=== PATIENT | female | born 1980 | race Caucasian/White ===

== ENCOUNTER 2016-12-08 13:29 | Emergency (ER) | payer OTHER ==
[~2016-12-08] VITALS: Ht 185.4 cm; Wt 88.8 kg
[2016-12-08] MEDS: RESP: ALBUTEROL 2.5 MG/IPRATROPIUM 0.5 MG NEB (SCH) INH ×3 (13:14→14:14)
[~2016-12-08 13:29] MED LIST: LORA-474 PO
[2016-12-08 13:31] VITALS: BP 138/67; PULSE 63; RESP 16; TEMP 97.8; O2SAT 100
[2016-12-08] MEDS ORDERED: AMOX875T PO (13:48)
--- NOTE | 2016-12-08 14:06 | PD ---
HPI Chief Complaint: Cold / Flu Symptoms Time Seen by Provider: 14:06 Travel History International Travel<30 days: No Contact w/Intl Traveler<30days: No Traveled to known affect area: No History of Present Illness HPI Patient's 36-year-old female with history of seasonal allergies presenting with cough for 4 weeks. She states she's had some intermittent nasal congestion and ear discomfort as well. Cough was initially dry but has progressed to a occasional thin white and yellow sputum. She has a she has chest congestion and cannot cough up all the material that is in there. She endorses some mild wheezing and dyspnea, no history of asthma or smoking. She denies chest pain or pleuritic pain. She denies any fevers. She denies any pain or swelling in her legs. She states that her children have also had similar symptoms and been treated by their doctor's for respiratory infections. Or days prior she called to her doctor when this started getting worse and they sent and amoxicillin for her which has not helped. She denies secondary tubal ligation. PFSH Past Medical History Hx Anticoagulant Therapy: No Anxiety: Yes Diminished Hearing: No Tetanus Vaccination: Unknown Influenza Vaccination: Yes ?: Not Past Surgical History Other Surgery: Yes (breast aug) Social History Alcohol Use: Yes (RARELY) Tobacco Use: No (NEVER) Substance Use: No Allergies-Medications (Allergen,Severity, Reaction): Coded Allergies: Codeine (Verified Allergy, Mild, 11/20/15) Reported Meds & Prescriptions Reported Meds & Active Scripts Active Tessalon Perles (Benzonatate) 100 Mg Cap 100-200 Mg PO TID PRN Proair Hfa 8.5 GM Inh (Albuterol Sulfate) 90 Mcg/Act Aer 2 Puff INH Q4-6H PRN 108 mcg/actuation Prednisone 20 Mg Tab 40 Mg PO DAILY 5 Days Azithromycin 250 Mg Tab 250 Mg PO DIRECTED Take 2 tabs (500 mg) on day 1 then 1 tab daily x 4 days. Reported Amoxicillin 875 Mg Tab 875 Mg PO BID Review of Systems Except as stated in HPI: all other systems reviewed are Neg Physical Exam Narrative GENERAL: Well-developed and well-nourished adult female in no acute distress. SKIN: Warm and dry. Good turgor without tenting. HEAD: Normocephalic and atraumatic. EYES: PERRL bilaterally, 5mm. EOMI bilaterally. No injection or icterus present. No proptosis. Lids without edema or erythema. ENT: Bilateral ear canals are non-edematous/non-erythematous without otorrhea. Bilateral TMs have intact landmarks and without distortion, perforation, air- fluid level or erythema. Nasal mucosa bluish and boggy with thin yellow discharge, septum intact and midline. Buccal mucosa pink and moist. Oropharynx free of erythema, tonsillar hypertrophy, masses, swelling, asymmetry and exudates. Uvula midline and airway patent. NECK: Supple, no meningeal signs. Trachea midline, no JVD. No cervical or facial lymphadenopathy. CARDIOVASCULAR: Regular rate and rhythm without murmurs, rubs, clicks or gallops. Radial and posterior tibial pulses 2+ bilaterally. No pedal edema. Negative bilateral Homans sign. RESPIRATORY: Diffuse rhonchi with end expiratory wheezing, no rales auscultated. No distress or use of accessory muscles. Speaks in full sentences. No stridor, tripoding or drooling. GASTROINTESTINAL: Non-tender, non-distended. Normal bowel sounds all 4 quadrants. No masses or organomegaly present. MUSCULOSKELETAL: No gait disturbances. Patient freely moving all four extremities spontaneously. Extremities without clubbing, cyanosis, or edema. No obvious deformities. NEUROLOGIC: CN II-XII grossly intact. Awake and alert. Motor grossly within normal limits. Normal speech. PSYCHIATRIC: Appropriate mood and affect; insight and judgment normal. Data Data Last Documented VS Vital Signs Date Time Temp Pulse Resp B/P Pulse Ox O2 Delivery O2 Flow Rate FiO2 12/08/16 13:48 63 16 100 Nasal Cannula 12/08/16 13:31 97.8 138/67 Orders Chest, Pa & Lat (12/08/16 14:03) Methylprednisolone So Succ Inj (Solumedr (12/08/16 14:15) Albuterol-Ipratropium Neb (Duoneb Neb) (12/08/16 14:15) MDM Medical Decision Making Medical Screen Exam Complete: Yes Emergency Medical Condition: Yes Interpretation(s) Last 24 hours Impressions Chest X-Ray 12/08/16 1403 Signed Impressions: Service Date/Time: Thursday, December 08, 2016 14:42 - CONCLUSION: No acute disease. Octavio Mccarthy MD Differential Diagnosis Acute bronchitis versus pneumonia versus viral URI versus asthma Narrative Course Patient is a 36-year-old female has had a cough and ENT symptoms for 4 weeks with acute worsening of the last 4 days. She is afebrile and nontoxic- appearing with no increased work of breathing. She has diffuse rhonchi and wheezing on exam. She's been on amoxicillin for 4 days that her doctor called in for her without examining her. Patient was given Solu-Medrol and DuoNeb which helped the patient's symptoms, she feels much improved. Re-auscultation reveals of the wheezing had resolved, mild rhonchi still present. Chest x-ray shows no acute cardiopulmonary disease. Given the length of time symptoms have been present we'll treat for bacterial etiology with azithromycin. Patient will also be given albuterol inhaler, prednisone and Tessalon Perles to help with symptoms. Recommend continue antihistamine and add Nasacort.See discharge paperwork for further instructions. The plan was discussed with the patient who acknowledged their understanding and agreement. Reinforced the follow-up with primary care is critically important. Patient instructed on emergent conditions that should prompt return to ED. Diagnosis Primary Impression: Acute bronchitis Qualified Code: J20.9 - Acute bronchitis, unspecified organism Patient Instructions: Acute Bronchitis (ED), General Instructions Additional Instructions: Discontinue the amoxicillin Continue OTC antihistamine, recommend adding Nasacort Take medication as prescribed OTC Mucinex, cough suppressants, and decongestants as needed OTC Tylenol or Ibuprofen for fever and discomfort Drink lots of fluid to help clear mucous/drainage and stay hydrated Follow up with PCP in 2-3 days Return to the ED for any acute worsening of symptoms Med/Other Pt SpecificInfo: Prescription(s) given Scripts Benzonatate (Tessalon Perles)100 Mg Cab148-088 Mg PO TID PRN (COUGH) #20 CAP Prov:Rebel Kahn MD 12/08/16 Albuterol 8.5 GM Inh (Proair Hfa 8.5 GM Inh)90 Mcg/Act Aer2 Puff INH Q4-6H PRN ( SHORTNESS OF BREATH) #1 INHALER 108 mcg/actuation Prov:Rebel Kahn MD 12/08/16 Prednisone 20 Mg Tab40 Mg PO DAILY 5 Days Prov:Rebel Kahn MD 2/10/17 Azithromycin 250 Mg Cgn598 Mg PO DIRECTED #6 TAB Take 2 tabs (500 mg) on day 1 then 1 tab daily x 4 days. Prov:Rebel Kahn MD 12/08/16 Disposition: 01 DISCHARGE HOME Condition: Stable Jamie Downs III Dec 08, 2016 14:06
[2016-12-08] MEDS ORDERED: methylPREDNISolone SOD SUCC 125 MG/2 ML VIAL IM ONE (14:15)
[2016-12-08] MEDS ORDERED: BENZ100 PO (15:17)
[2016-12-08] MEDS ORDERED: PRED20 PO (15:17)
[2016-12-08] MEDS ORDERED: ALBUAER3 INH (15:17)
[2016-12-08] MEDS ORDERED: AZIT250T3 PO (15:17)
--- NOTE | 2016-12-08 16:10 | RADHPO ---
EXAM DATE/TIME: 12/08/2016 14:42 [facility] COMPARISON: No previous studies available for comparison. INDICATIONS : Cough, congestion. MEDICAL HISTORY : SURGICAL HISTORY : Tubal ligation. Breast augmentation. ENCOUNTER: Initial ACUITY: 3 weeks PAIN SCORE: 0/10 LOCATION: chest FINDINGS: PA and lateral views of the chest demonstrate the lungs to be symmetrically aerated without evidence of mass, infiltrate or effusion. The cardiomediastinal contours are unremarkable. Osseous structure s are intact. CONCLUSION: No acute disease. Octavio Mccarthy MD on December 08, 2016 at 16:08 Board Certified Radiologist. This report was verified electronically.
== END 2016-12-08 15:50 | disposition home or self-care (01) ==
LOC: PHED 13:29
DX: J20.9 Acute bronchitis, unspecified (principal)
CPT/HCPCS: 71020; 94640; 94664; 96372; 99283; J2930